=== PATIENT | male | born 1990 | race American Indian/Alaskan Native ===

== ENCOUNTER 2023-08-05 16:37 | Emergency (ER) | payer MEDICAID ==
[~2023-08-05] VITALS: Ht 180.3 cm; Wt 95.0 kg
[2023-08-05 17:26] VITALS: BP 132/87; PULSE 97; RESP 19; TEMP 98.2; O2SAT 97
== END 2023-08-05 20:05 | disposition home or self-care (01) ==
LOC: ER 16:40
DX: Z02.89 Encounter for other administrative examinations (principal); F12.90 Cannabis use, unspecified, uncomplicated; F17.200 Nicotine dependence, unspecified, uncomplicated; F15.90 Other stimulant use, unspecified, uncomplicated; Z72.89 Other problems related to lifestyle
CPT/HCPCS: 99281